=== PATIENT | male | born 1990 | race Caucasian/White ===

== ENCOUNTER 2020-04-29 13:07 | Emergency (ER) | payer OTHER, MEDICAID, SELFPAY ==
[2020-04-29 13:16] VITALS: BP 162/85; PULSE 94; RESP 18; TEMP 37.1; O2SAT 98; BMI 33.0
[2020-04-29 13:47] LABS: Add Manual Diff / Slide Review NO; Basophils Absolute Auto 0 /uL (0-100); Basophils Percent Auto 0.6 % (0-2); Eosinophils Absolute Auto 0 /uL (0-450); Eosinophils Percent Auto 0.3 % (2-4); Hematocrit 41.6 % (41-53); Hemoglobin 13.9 g/dL (13.5-17.5); Lymphocytes Absolute Auto 1200 /uL (1100-4500); Lymphocytes Percent Auto 15.9 % (25-40); Mean Corpuscular HGB Conc 33.5 % (30-36); Mean Corpuscular Hemoglobin 26.8 PG (26-34); Mean Corpuscular Volume 80.1 fL (80-100); Monocytes Absolute Auto 900 /uL (0-900); Monocytes Percent Auto 12.6 % (3-14); Neutrophils Absolute Auto 5200 /uL (1500-7000); Neutrophils Percent Auto 70.6 % (50-75); Platelet Count 265 X10^3/uL (150-400); Red Cell Distribution Width 14.7 % (11.6-14.8); White Blood Cell Count 7.3 X10^3/uL (4.5-11.0)
--- NOTE | 2020-04-29 13:52 | ED_ITS ---
HPI - Alcohol <KATJA Garcia - Last Filed: 04/29/20 17:47> General Chief Complaint: Toxicology Problem Stated Complaint: DETOX Time Seen by Provider: 04/29/20 13:37 Source: patient Mode of arrival: Ambulatory Limitations: no limitations History of Present Illness HPI narrative: The patient is a 30-year-old male who does not smoke alcohol presents with request for medical clearance so that he can go to detox. 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 He was sober for approximately 1 year, relapsed in October and now wants to get help. He denies any thoughts of hurting himself or anybody else. He states that he went to [facility] detox approximately 6 years ago. He states that he started having drug issues when he was 14 years ago. The patient denies any medical history, denies any daily medications, denies any current symptoms of detox right now. Last use both heroin and methamphetamine this morning. He has already called [facility] to do his preliminary interview, which I confirmed with facility. The patient denies any cough, fever, congestion shortness of breath or symptoms of coronavirus. Related Data Allergies Allergy/AdvReac Type Severity Reaction Status Date / Time No Known Drug Allergies Allergy Verified 04/29/20 13:19 Review of Systems <KATJA Garcia - Last Filed: 04/29/20 17:47> Review of Systems Narrative: GENERAL: Denies chills, fatigue, malaise, fever, sweats. HEENT: Denies sinus pain, ear pain, sore throat, difficulty swallowing, dizziness. RESPIRATORY: Denies dyspnea, cough, wheezing, hemoptysis, sputum. CARDIOVASCULAR: Denies chest pain, palpitations, orthopnea, edema, GASTROINTESTINAL: Denies nausea, vomiting, abdominal pain, diarrhea, constipation, melena. : Denies dysuria, frequency, incontinence, hematuria, urinary retention. MUSCULOSKELETAL: denies weakness, joint pain, or bony pain SKIN: Denies rash, skin lesions, or other NEUROLOGIC: Denies weakness, headache, numbness, change in speech, confusion, se izures, incoordination. PSYCHIATRIC: See HPI 12 point review of systems is negative except for those stated above Patient History <KATJA Garcia - Last Filed: 04/29/20 17:47> Social History Smoking Status: Never smoker Smoking Status: Never smoker Substance Use Type: heroin and methamphetamine Exam <KATJA Garcia - Last Filed: 04/29/20 17:47> Narrative Exam Narrative: GENERAL: This is a well-nourished, well-developed patient, in no acute distress HEAD: Atraumatic. Normocephalic. No temporal or scalp tenderness. EYES: Pupils equal round and reactive. Extraocular motions intact. No scleral icterus. No injection or drainage. ENT: Nose without bleeding, purulent drainage or septal hematoma. Airway patent. NECK: Trachea midline. No JVD or lymphadenopathy. Supple, nontender, no meningeal signs. CARDIOVASCULAR: Regular rate and rhythm RESPIRATORY: Clear to auscultation. Breath sounds equal bilaterally. No wheezes, rales, or rhonchi. No cough. No increased respiratory effort. No accessory muscle use. GASTROINTESTINAL: Abdomen soft, non-tender, nondistended. Active bowel sounds all 4 quadrants. No guarding. EXTREMITIES: No clubbing, cyanosis, or edema. No joint tenderness, effusion, or edema noted. BACK: Nontender without deformity or crepitance. No flank tenderness. NEURO: AOx3. SKIN: No rash or erythema on visible skin. IV drug use sites noted bilateral forearms. Initial Vital Signs Initial Vital Signs: Vital Signs Temperature 98.7 F 04/29/20 13:16 Pulse Rate 94 H 04/29/20 13:16 Respiratory Rate 18 04/29/20 13:16 Blood Pressure 162/85 H 04/29/20 13:16 Pulse Oximetry 98 04/29/20 13:16 <Nia Phillip DO - Last Filed: 05/04/20 07:25> Initial Vital Signs Initial Vital Signs: Vital Signs Temperature 98.7 F 04/29/20 13:16 Pulse Rate 94 H 04/29/20 13:16 Respiratory Rate 18 04/29/20 13:16 Blood Pressure 162/85 H 04/29/20 13:16 Pulse Oximetry 98 04/29/20 13:16 Scores <KATJA Garcia - Last Filed: 04/29/20 17:47> GCS Ajay coma scale eye opening: Spontaneous Shirley coma scale verbal response: Orientated Shirley coma scale motor response: Obey commands Shirley coma scale total score: 15 Course <TAE Garcia-BC - Last Filed: 04/29/20 17:47> Orders Ordered: ED Orders 04/29/20 13:41 Complete Blood Count AUTO DIFF Stat Comprehensive Metabolic Panel Stat Ethanol (ETOH) Stat Thyroid Stimulating Hormone Stat 04/29/20 15:00 Urinalysis and Microscopic Stat Urine Drug Screen, Rapid Stat 04/29/20 15:30 [facility] Vital Signs Vital signs: Vital Signs - 8 hr 04/29/20 13:16 04/29/20 17:41 Temperature 98.7 F Pulse Rate 94 H 83 Respiratory Rate 18 16 Blood Pressure 162/85 H 132/86 Pulse Oximetry 98 98 <Nia Phillip DO - Last Filed: 05/04/20 07:25> Orders Ordered: ED Orders 04/29/20 13:41 Complete Blood Count AUTO DIFF Stat Comprehensive Metabolic Panel Stat Ethanol (ETOH) Stat Thyroid Stimulating Hormone Stat 04/29/20 15:00 Urinalysis and Microscopic Stat Urine Drug Screen, Rapid Stat 04/29/20 15:30 Consult to [facility] Stat Vital Signs Vital signs: Vital Signs - 8 hr 04/29/20 13:16 04/29/20 17:41 Temperature 98.7 F Pulse Rate 94 H 83 Respiratory Rate 18 16 Blood Pressure 162/85 H 132/86 Pulse Oximetry 98 98 MDM - Alcohol <TAE Garcia-BC - Last Filed: 04/29/20 17:47> Lab Data Result diagrams: 04/29/20 13:41 04/29/20 13:41 Labs: Lab Results 04/29/20 04/29/20 04/29/20 Range/Units 13:41 13:41 13:41 WBC 7.3 (4.5-11.0) X10^3/uL RBC 5.20 (4.5-5.9) X10^6/uL Hgb 13.9 (13.5-17.5) g/dL Hct 41.6 (41-53) % MCV 80.1 (80-100) fL MCH 26.8 (26-34) PG MCHC 33.5 (30-36) % RDW 14.7 (11.6-14.8) % Plt Count 265 (150-400) X10^3/uL Neut % (Auto) 70.6 (50-75) % Lymph % (Auto) 15.9 L (25-40) % Todd % (Auto) 12.6 (3-14) % Eos % (Auto) 0.3 L (2-4) % Baso % (Auto) 0.6 (0-2) % Neut # (Auto) 5200 (9842-2551) /uL Lymph # (Auto) 1200 (3352-5415) /uL Todd # (Auto) 900 (0-900) /uL Eos # (Auto) 0 (0-450) /uL Baso # (Auto) 0 (0-100) /uL Sodium 140 (137-145) mmol/L Potassium 4.6 (3.4-5.1) mmol/L Chloride 99 (98-107) mmol/L Carbon Dioxide 35 H (22-32) mmol/L BUN 15 (9-20) mg/dL Creatinine 0.82 (0.66-1.25) mg/dL Estimated GFR > 60.0 (>60) mL/min BUN/Creatinine Ratio 18.3 (6-22) Glucose 96 (70-100) mg/dL Calcium 10.6 H (8.4-10.2) mg/dL Total Bilirubin 0.6 (0.2-1.3) mg/dL AST 40 (17-59) IU/L ALT 36 (<50) IU/L Alkaline Phosphatase 85 (38-126) U/L Total Protein 8.2 (6.3-8.2) g/dL Albumin 4.8 (3.5-5.0) g/dL Globulin 3.4 (1.7-4.1) g/dL Albumin/Globulin Ratio 1.4 (1.0-2.8) TSH 2.50 (0.47-4.68) uIU/mL Urine Color Urine Appearance Urine pH (4.5-8.0) Ur Specific [place] (1.000-1.035) Urine Protein (Negative) Urine Glucose (UA) (Negative) g/dL Urine Ketones (NEGATIVE) Urine Occult Blood (Negative) Urine Nitrate (Negative) Urine Bilirubin (NEGATIVE) Urine Urobilinogen (0.2) E.U./dL Ur Leukocyte Esterase (NEGATIVE) Urine RBC (0-5/HPF) Urine WBC (0-5/HPF) Ur Squamous Epith Cells (0-5/HPF) Urine Bacteria (None) Urine Mucus (Negative) Ur Culture Indicated? U Opiates 300ng/mL cut (Negative) Ur Oxycodone Screen (Negative) Urine Methadone Screen (Negative) Ur Barbiturates Screen (Negative) U Tricyclic Antidepress (Negative) Ur Phencyclidine Scrn (Negative) Ur Amphetamines Screen (Negative) U Methamphetamines Scrn (Negative) Ur MDMA Scrn (Ecstasy) (Negative) U Benzodiazepines Scrn (Negative) Urine Cocaine Screen (Negative) U Marijuana (THC) Screen (Negative) Ethyl Alcohol < 10 ( - 10) mg/dL 04/29/20 04/29/20 Range/Units 15:00 15:00 WBC (4.5-11.0) X10^3/uL RBC (4.5-5.9) X10^6/uL Hgb (13.5-17.5) g/dL Hct (41-53) % MCV (80-100) fL MCH (26-34) PG MCHC (30-36) % RDW (11.6-14.8) % Plt Count (150-400) X10^3/uL Neut % (Auto) (50-75) % Lymph % (Auto) (25-40) % Todd % (Auto) (3-14) % Eos % (Auto) (2-4) % Baso % (Auto) (0-2) % Neut # (Auto) (9106-2953) /uL Lymph # (Auto) (0102-6616) /uL Todd # (Auto) (0-900) /uL Eos # (Auto) (0-450) /uL Baso # (Auto) (0-100) /uL Sodium (137-145) mmol/L Potassium (3.4-5.1) mmol/L Chloride (98-107) mmol/L Carbon Dioxide (22-32) mmol/L BUN (9-20) mg/dL Creatinine (0.66-1.25) mg/dL Estimated GFR (>60) mL/min BUN/Creatinine Ratio (6-22) Glucose (70-100) mg/dL Calcium (8.4-10.2) mg/dL Total Bilirubin (0.2-1.3) mg/dL AST (17-59) IU/L ALT (<50) IU/L Alkaline Phosphatase (38-126) U/L Total Protein (6.3-8.2) g/dL Albumin (3.5-5.0) g/dL Globulin (1.7-4.1) g/dL Albumin/Globulin Ratio (1.0-2.8) TSH (0.47-4.68) uIU/mL Urine Color Yellow Urine Appearance Clear Urine pH 5.5 (4.5-8.0) Ur Specific [place] 1.025 (1.000-1.035) Urine Protein Trace H (Negative) Urine Glucose (UA) Negative (Negative) g/dL Urine Ketones 3+ H (NEGATIVE) Urine Occult Blood Negative (Negative) Urine Nitrate Negative (Negative) Urine Bilirubin Negative (NEGATIVE) Urine Urobilinogen 0.2 (0.2) E.U./dL Ur Leukocyte Esterase Negative (NEGATIVE) Urine RBC 1-5/hpf (0-5/HPF) Urine WBC 1-5/hpf (0-5/HPF) Ur Squamous Epith Cells 0-1 /hpf (0-5/HPF) Urine Bacteria Occasional (0-1) (None) Urine Mucus 3+ H (Negative) Ur Culture Indicated? Cult not indicated U Opiates 300ng/mL cut Positive H (Negative) Ur Oxycodone Screen Negative (Negative) Urine Methadone Screen Negative (Negative) Ur Barbiturates Screen Negative (Negative) U Tricyclic Antidepress Negative (Negative) Ur Phencyclidine Scrn Negative (Negative) Ur Amphetamines Screen Negative (Negative) U Methamphetamines Scrn Positive H (Negative) Ur MDMA Scrn (Ecstasy) Negative (Negative) U Benzodiazepines Scrn Negative (Negative) Urine Cocaine Screen Negative (Negative) U Marijuana (THC) Screen Negative (Negative) Ethyl Alcohol ( - 10) mg/dL MDM Narrative Medical decision making narrative: The patient is a 30-year-old male who presents requesting medical clearance to go to [facility] for detox from methamphetamine and heroin. His last use was this morning. He denies any thoughts of hurting himself or anybody else. We discussed symptoms of coronavirus including fever, cough, chest pain, shortness of breath and he denies any symptoms of coronavirus. Thus we will hold off on testing him at this point time as per [facility] detox. Patient's labs and results were faxed to [facility] at approximately 4:00 p.m. At 17:00, [facility] is reviewing the patient's lab work, and will call back shortly. Patient was then accepted to [facility] for methamphetamine and heroin use. Patient will be driven by mother and family. Discussed with patient at 5:40 p.m. that he is to proceed directly to detox. Patient has declined any food, is been drinking throughout his stay in the emergency department. I discussed at length coming back to the emergency department for any acute concerns. patient has no questions or concerns upon discharge and states understanding of return precautions as well as follow-up care. The patient contact [facility] electronic resources librarian, who can help him obtain primary care provider. Patient discharged by nursing <Nia Phillip DO - Last Filed: 05/04/20 07:25> Lab Data Labs: Lab Results 04/29/20 04/29/20 04/29/20 Range/Units 13:41 13:41 13:41 WBC 7.3 (4.5-11.0) X10^3/uL RBC 5.20 (4.5-5.9) X10^6/uL Hgb 13.9 (13.5-17.5) g/dL Hct 41.6 (41-53) % MCV 80.1 (80-100) fL MCH 26.8 (26-34) PG MCHC 33.5 (30-36) % RDW 14.7 (11.6-14.8) % Plt Count 265 (150-400) X10^3/uL Neut % (Auto) 70.6 (50-75) % Lymph % (Auto) 15.9 L (25-40) % Todd % (Auto) 12.6 (3-14) % Eos % (Auto) 0.3 L (2-4) % Baso % (Auto) 0.6 (0-2) % Neut # (Auto) 5200 (0656-8940) /uL Lymph # (Auto) 1200 (2097-1090) /uL Todd # (Auto) 900 (0-900) /uL Eos # (Auto) 0 (0-450) /uL Baso # (Auto) 0 (0-100) /uL Sodium 140 (137-145) mmol/L Potassium 4.6 (3.4-5.1) mmol/L Chloride 99 (98-107) mmol/L Carbon Dioxide 35 H (22-32) mmol/L BUN 15 (9-20) mg/dL Creatinine 0.82 (0.66-1.25) mg/dL Estimated GFR > 60.0 (>60) mL/min BUN/Creatinine Ratio 18.3 (6-22) Glucose 96 (70-100) mg/dL Calcium 10.6 H (8.4-10.2) mg/dL Total Bilirubin 0.6 (0.2-1.3) mg/dL AST 40 (17-59) IU/L ALT 36 (<50) IU/L Alkaline Phosphatase 85 (38-126) U/L Total Protein 8.2 (6.3-8.2) g/dL Albumin 4.8 (3.5-5.0) g/dL Globulin 3.4 (1.7-4.1) g/dL Albumin/Globulin Ratio 1.4 (1.0-2.8) TSH 2.50 (0.47-4.68) uIU/mL Urine Color Urine Appearance Urine pH (4.5-8.0) Ur Specific [place] (1.000-1.035) Urine Protein (Negative) Urine Glucose (UA) (Negative) g/dL Urine Ketones (NEGATIVE) Urine Occult Blood (Negative) Urine Nitrate (Negative) Urine Bilirubin (NEGATIVE) Urine Urobilinogen (0.2) E.U./dL Ur Leukocyte Esterase (NEGATIVE) Urine RBC (0-5/HPF) Urine WBC (0-5/HPF) Ur Squamous Epith Cells (0-5/HPF) Urine Bacteria (None) Urine Mucus (Negative) Ur Culture Indicated? U Opiates 300ng/mL cut (Negative) Ur Oxycodone Screen (Negative) Urine Methadone Screen (Negative) Ur Barbiturates Screen (Negative) U Tricyclic Antidepress (Negative) Ur Phencyclidine Scrn (Negative) Ur Amphetamines Screen (Negative) U Methamphetamines Scrn (Negative) Ur MDMA Scrn (Ecstasy) (Negative) U Benzodiazepines Scrn (Negative) Urine Cocaine Screen (Negative) U Marijuana (THC) Screen (Negative) Ethyl Alcohol < 10 ( - 10) mg/dL 04/29/20 04/29/20 Range/Units 15:00 15:00 WBC (4.5-11.0) X10^3/uL RBC (4.5-5.9) X10^6/uL Hgb (13.5-17.5) g/dL Hct (41-53) % MCV (80-100) fL MCH (26-34) PG MCHC (30-36) % RDW (11.6-14.8) % Plt Count (150-400) X10^3/uL Neut % (Auto) (50-75) % Lymph % (Auto) (25-40) % Todd % (Auto) (3-14) % Eos % (Auto) (2-4) % Baso % (Auto) (0-2) % Neut # (Auto) (8156-6721) /uL Lymph # (Auto) (4430-6984) /uL Todd # (Auto) (0-900) /uL Eos # (Auto) (0-450) /uL Baso # (Auto) (0-100) /uL Sodium (137-145) mmol/L Potassium (3.4-5.1) mmol/L Chloride (98-107) mmol/L Carbon Dioxide (22-32) mmol/L BUN (9-20) mg/dL Creatinine (0.66-1.25) mg/dL Estimated GFR (>60) mL/min BUN/Creatinine Ratio (6-22) Glucose (70-100) mg/dL Calcium (8.4-10.2) mg/dL Total Bilirubin (0.2-1.3) mg/dL AST (17-59) IU/L ALT (<50) IU/L Alkaline Phosphatase (38-126) U/L Total Protein (6.3-8.2) g/dL Albumin (3.5-5.0) g/dL Globulin (1.7-4.1) g/dL Albumin/Globulin Ratio (1.0-2.8) TSH (0.47-4.68) uIU/mL Urine Color Yellow Urine Appearance Clear Urine pH 5.5 (4.5-8.0) Ur Specific [place] 1.025 (1.000-1.035) Urine Protein Trace H (Negative) Urine Glucose (UA) Negative (Negative) g/dL Urine Ketones 3+ H (NEGATIVE) Urine Occult Blood Negative (Negative) Urine Nitrate Negative (Negative) Urine Bilirubin Negative (NEGATIVE) Urine Urobilinogen 0.2 (0.2) E.U./dL Ur Leukocyte Esterase Negative (NEGATIVE) Urine RBC 1-5/hpf (0-5/HPF) Urine WBC 1-5/hpf (0-5/HPF) Ur Squamous Epith Cells 0-1 /hpf (0-5/HPF) Urine Bacteria Occasional (0-1) (None) Urine Mucus 3+ H (Negative) Ur Culture Indicated? Cult not indicated U Opiates 300ng/mL cut Positive H (Negative) Ur Oxycodone Screen Negative (Negative) Urine Methadone Screen Negative (Negative) Ur Barbiturates Screen Negative (Negative) U Tricyclic Antidepress Negative (Negative) Ur Phencyclidine Scrn Negative (Negative) Ur Amphetamines Screen Negative (Negative) U Methamphetamines Scrn Positive H (Negative) Ur MDMA Scrn (Ecstasy) Negative (Negative) U Benzodiazepines Scrn Negative (Negative) Urine Cocaine Screen Negative (Negative) U Marijuana (THC) Screen Negative (Negative) Ethyl Alcohol ( - 10) mg/dL Discharge Plan Departure Patient Disposition: Home Clinical Impression: Substance use disorder Discharge Date/Time: 04/29/20 17:46 Instructions: DI for Substance Use Disorder Activity Restrictions/Additional Instructions: Thank you for trusting us with your care today As discussed, you have been accepted by [facility]. We have provided a cab in order to get you over there. Please proceed directly to [facility] detox. Please come back to emergency department for any acute concerns. I have given you contact information [facility] electronic resources librarian, who can help you identify a primary care provider when you are ready for one Referrals: [facility] [Outside] <Nia Phillip, - Last Filed: 05/04/20 07:25> [facility] Yee Attestation: I was immediately available in the department for consultation. Documentation has been reviewed. I agree with assessment and plan.
[2020-04-29 14:01] LABS: Alanine Aminotransferase 36 IU/L (<50); Albumin 4.8 g/dL (3.5-5.0); Albumin Globulin Ratio 1.4 (1.0-2.8); Alkaline Phosphatase 85 U/L (38-126); Aspartate Aminotransferase 40 IU/L (17-59); BUN Creatinine Ratio 18.3 (6-22); Bilirubin Total 0.6 mg/dL (0.2-1.3); Blood Urea Nitrogen 15 mg/dL (9-20); Calcium 10.6 mg/dL (8.4-10.2); Carbon Dioxide 35 mmol/L (22-32); Chloride 99 mmol/L (98-107); Estimated Glomerular Filt Rate > 60.0 mL/min (>60); Ethanol (ETOH) < 10 mg/dL; Globulin 3.4 g/dL (1.7-4.1); Glucose 96 mg/dL (70-100); HEMOLYSIS < 15 (0-50); Potassium 4.6 mmol/L (3.4-5.1); Sodium 140 mmol/L (137-145); Total Protein 8.2 g/dL (6.3-8.2)
[2020-04-29 15:35] LABS: Appearance Urine UA CLEAR; Bilirubin Urine UA NEGATIVE (NEGATIVE); Color Urine UA YELLOW; Glucose Urine UA NEGATIVE (Negative); Ketones Urine UA 3+ (NEGATIVE); Leukocyte Esterase Urine UA NEGATIVE (NEGATIVE); Nitrite Urine UA NEGATIVE (Negative); Occult Blood Urine UA NEGATIVE (Negative); Protein Urine UA TRACE (Negative); Specific Gravity Urine UA 1.025 (1.000-1.035); Urobilinogen Urine UA 0.2 E.U./dL (0.2); pH Urine UA 5.5 (4.5-8.0)
[2020-04-29 15:45] LABS: Bacteria Urine Occasional (0-1); Culture Indicated Urine Cult Not Indicated; Mucus Urine 3+ (Negative); RBC Urine 1-5/HPF (0-5/HPF); Squamous Epithelial Cell Urine 0-1 /HPF (0-5/HPF); WBC Urine 1-5/HPF (0-5/HPF)
[2020-04-29 15:46] LABS: Ur Creatinine Normal (Normal); Ur Specific Gravity Normal (Normal); Urine pH Normal (Normal)
[2020-04-29 15:47] LABS: UR Morphine/Opiate cutoff 300 Positive (Negative); Urine Amphetamines Negative (Negative); Urine Barbiturates Negative (Negative); Urine Benzodiazepines Negative (Negative); Urine Cocaine Negative (Negative); Urine MDMA Negative (Negative); Urine Methadone Negative (Negative); Urine Methamphetamines Positive (Negative); Urine Oxycodone Negative (Negative); Urine Phencyclidine Negative (Negative); Urine Tetrahydrocannabinol Negative (Negative); Urine Tricyclic Antidepressant Negative (Negative)
[2020-04-29 17:41] VITALS: BP 132/86; PULSE 83; RESP 16; O2SAT 98
== END 2020-04-29 17:46 | disposition home or self-care (01) ==
PROVIDERS: Emergency Medicine; Emergency Provider Nurse Practitioner Family
DX: F19.90 Other psychoactive substance use, unspecified, uncomplicated (principal)
CPT/HCPCS: 36415; 80053; 80305; 80320; 81001; 84443; 85025; 99283

== ENCOUNTER → 2022-03-19 18:42 | Outpatient (CLI) | payer OTHER, MEDICAID, SELFPAY ==
--- NOTE | 2022-03-19 18:44 | DI.RAD.S_ITS ---
PROCEDURE: XR WRIST RT MIN 3V INDICATIONS: lump on right forearm, ROM difficulties TECHNIQUE: 4 views of the wrist were acquired. COMPARISON: None. FINDINGS: Bones: No fractures or dislocations. No suspicious bony lesions. Scaphoid view: Negative Soft tissues: No suspicious soft tissue calcifications. IMPRESSION: No acute fracture. No osseous lesion. If symptoms and/or clinical suspicion for pathology persist, further assessment with repeat, or advanced imaging (e.g., CT, MRI, or bone scan) may be helpful for further assessment. Dictated by: Anali Guerrier M.D. on 03/19/2022 at 18:53 Approved by: Anali Guerrier M.D. on 03/19/2022 at 18:54
== END ==
PROVIDERS: Referring Provider Physician Assistant; Visit Provider Physician Assistant
DX: M79.89 Other specified soft tissue disorders; M79.631 Pain in right forearm
CPT/HCPCS: 73110

== ENCOUNTER → 2023-06-09 15:24 | Outpatient (CLI) | payer OTHER, MEDICAID, SELFPAY | PROVIDERS: Visit Provider Registered Nurse | DX: R10.9 Unspecified abdominal pain (principal) | CPT/HCPCS: 81002; 87086 ==

== ENCOUNTER 2024-10-05 17:34 | Emergency (ER) | payer SELFPAY ==
[2024-10-05] VITALS (12 sets, daily range): BP systolic 134–196; BP diastolic 81–131; PULSE 73–115; RESP 17–24; TEMP 36.6; O2SAT 92–98; BMI 35.9
--- NOTE | 2024-10-05 18:13 | EKG_ITS ---
[address] [address] Test Date: 2024-10-05 Pat Name: Alvarado Guevara Department: Room: Gender: Male Psych Social Worker: MAGDALENO : 1990 Requested By: Order Number: [id number] Reading MD: Akira Samson MD Measurements Intervals [place] Rate: 90 P: 50 [place]: 152 QRS: 8 QRSD: 80 T: 29 QT: 340 QTc: 415 Interpretive Statements Normal sinus rhythm with sinus arrhythmia Electronically Signed On 10-06-2024 7:48:00 PST by Akira Samson MD
[2024-10-05 18:20] LABS: Add Manual Diff / Slide Review NO; Basophils Absolute Auto 0 /uL (0-100); Basophils Percent Auto 0.5 % (0-2); Eosinophils Absolute Auto 0 /uL (0-450); Eosinophils Percent Auto 0.1 % (2-4); Hematocrit 47.6 % (41-53); Hemoglobin 15.6 g/dL (13.5-17.5); Lymphocytes Absolute Auto 800 /uL (1100-4500); Lymphocytes Percent Auto 14.1 % (25-40); Mean Corpuscular HGB Conc 32.8 % (30-36); Mean Corpuscular Volume 94.6 fL (80-100); Monocytes Absolute Auto 600 /uL (0-900); Monocytes Percent Auto 9.5 % (3-14); Neutrophils Absolute Auto 4500 /uL (1500-7000); Neutrophils Percent Auto 75.8 % (50-75); Platelet Count 239 X10^3/uL (150-400); Red Blood Cell Count 5.03 X10^6/uL (4.5-5.9); Red Cell Distribution Width 15.6 % (11.6-14.8)
[2024-10-05 18:32] LABS: Acetaminophen < 10 ug/mL (10-30); Alanine Aminotransferase 256 IU/L (<50); Albumin Globulin Ratio 1.5 (1.0-2.8); Alkaline Phosphatase 80 U/L (38-126); Aspartate Aminotransferase 231 IU/L (17-59); BUN Creatinine Ratio 13.5 (6-22); Bilirubin Total 0.5 mg/dL (0.2-1.3); Blood Urea Nitrogen 10 mg/dL (9-20); Calcium 9.2 mg/dL (8.4-10.2); Carbon Dioxide 27 mmol/L (22-32); Chloride 102 mmol/L (98-107); Estimated Glomerular Filt Rate > 60 mL/min (>60); Ethanol (ETOH) 83 mg/dL; Globulin 3.3 g/dL (1.7-4.1); Glucose 105 mg/dL (70-100); HEMOLYSIS < 15 (0-50); Potassium 4.3 mmol/L (3.4-5.1); Salicylate < 1.0 mg/dL (<20); Sodium 138 mmol/L (137-145); Total Protein 8.3 g/dL (6.3-8.2)
[2024-10-05 19:22] LABS: Free T4, Direct Thyroxine 0.72 ng/dL (0.78-2.19)
[2024-10-05 19:35] LABS: Thyroid Stimulating Hormone 3.11 uIU/mL (0.47-4.68)
[2024-10-05 22:37] LABS: UR Morphine/Opiate cutoff 300 Negative (Negative); Ur Creatinine Normal (Normal); Ur Specific Gravity Normal (Normal); Urine Amphetamines Negative (Negative); Urine Barbiturates Negative (Negative); Urine Benzodiazepines Negative (Negative); Urine Cocaine Negative (Negative); Urine MDMA Negative (Negative); Urine Methadone Negative (Negative); Urine Methamphetamines Negative (Negative); Urine Oxycodone Negative (Negative); Urine Phencyclidine Negative (Negative); Urine Tetrahydrocannabinol Negative (Negative); Urine Tricyclic Antidepressant Negative (Negative); Urine pH Normal (Normal)
--- NOTE | 2024-10-05 23:02 | ED.GENADULT ---
HPI - General Adult General Chief complaint: Toxicology Problem Stated complaint[facility] Time Seen by Provider: 10/05/24 22:58 Source: patient Mode of arrival: Ambulatory History of Present Illness HPI narrative: 34-year-old male with history of remote heroin abuse quit 5 years ago, for the last 1-1/2 years has been drinking alcohol rather heavily, usually 1-1/2 L of wine daily, last drink of alcohol was noon today, feeling shaky through the day today. He would like detox services. He has not had any nausea or vomiting. He does not feel feverish. No chest pain or shortness of breath. No shaking or seizure activity. No incontinence of urine or stool. Related Data Home Medications Medication Instructions Recorded Confirmed No Known Home Medications 03/19/22 03/19/22 Allergies Allergy/AdvReac Type Severity Reaction Status Date / Time No Known Drug Allergies Allergy Verified 03/19/22 18:25 Patient History Social History Smoking Status: Never smoker Smoking Status: Never smoker Alcohol type: wine Exam Narrative Exam Narrative: GENERAL: Well-developed patient, in mild distress. HEAD: Atraumatic. Normocephalic. EYES: Pupils equal round and reactive. Extraocular motions intact. No scleral icterus. No injection or drainage. ENT: Nose without bleeding, purulent drainage. Throat without erythema, tonsillar hypertrophy or exudate. Airway patent. NECK: Trachea midline. Non tender CARDIOVASCULAR: Regular rate and rhythm without murmurs, gallops, or rubs. RESPIRATORY: Clear to auscultation. Breath sounds equal bilaterally. No wheezes, rales, or rhonchi. GASTROINTESTINAL: Abdomen soft, non-tender, nondistended. EXTREMITIES: No edema or joint tenderness. BACK: Nontender without deformity or crepitance. No flank tenderness. NEURO: AOx3. Motor functions grossly nonfocal. Some tremulousness noted. SKIN: No rash or erythema of visible areas Initial Vital Signs Initial Vital Signs: Vital Signs Temperature 98 F 10/05/24 17:55 Pulse Rate 115 H 10/05/24 17:55 Respiratory Rate 18 10/05/24 17:55 Blood Pressure 196/108 H 10/05/24 17:55 Pulse Oximetry 94 10/05/24 17:55 Oxygen Delivery Method Room Air 10/05/24 17:55 Course Orders Ordered: ED Orders 10/05/24 22:23 UA dip [Urinalysis Screen (Dip Only)] Stat Urine Drug Screen, Rapid Stat Lorazepam (Lorazepam 2 Mg/Ml Inj) 2 mg IV PRN PRN; Protocol PRN Reason: Alcohol Withdrawal Last Admin: 10/06/24 02:15 Dose: 2 mg Documented By: KENDELL Discontinued Medications Thiamine HCl 100 mg/ Sodium (Chloride) 101 mls @ 404 mls/hr IV NOW ONE Stop: 10/05/24 23:04 Last Infusion: 10/05/24 23:50 Dose: Infused Documented By: Admin: 10/05/24 23:19 Dose: 404 mls/hr Documented By: GUCCI Sodium Chloride (Normal Saline 0.9%) 1,000 mls @ 1,000 mls/hr IV BOLUS ONE Stop: 10/06/24 00:02 Last Infusion: 10/06/24 00:46 Dose: Infused Documented By: Admin: 10/05/24 23:18 Dose: 1,000 mls/hr Documented By: GUCCI Lorazepam (Lorazepam 2 Mg/Ml Inj) 2 mg IV NOW ONE; Protocol Stop: 10/05/24 23:59 Last Admin: 10/06/24 00:13 Dose: Not Given Documented By: KENDELL Phenobarbital (Phenobarbital 65 Mg/Ml Vial) 65 mg IV NOW ONE Stop: 10/05/24 23:01 Last Admin: 10/05/24 23:04 Dose: 65 mg Documented By: GUCCI Vital Signs Vital signs: Vital Signs - 8 hr 10/05/24 23:30 10/05/24 23:30 10/06/24 00:00 Pulse Rate 107 H Respiratory Rate Blood Pressure 174/104 H 165/95 H Pulse Oximetry 96 Oxygen Delivery Method 10/06/24 00:00 10/06/24 00:30 10/06/24 00:30 Pulse Rate 78 90 Respiratory Rate 24 14 Blood Pressure 165/95 H Pulse Oximetry 94 94 Oxygen Delivery Method Room Air 10/06/24 01:00 10/06/24 01:00 10/06/24 01:30 Pulse Rate 91 H Respiratory Rate 22 Blood Pressure 155/105 H 174/108 H Pulse Oximetry 95 Oxygen Delivery Method Room Air 10/06/24 01:30 10/06/24 02:00 10/06/24 02:00 Pulse Rate 100 H 96 H Respiratory Rate 26 H 28 H Blood Pressure 182/102 H Pulse Oximetry 96 96 Oxygen Delivery Method 10/06/24 02:17 10/06/24 02:17 10/06/24 02:30 Pulse Rate 102 H 90 Respiratory Rate 20 21 Blood Pressure 181/115 H 149/97 H Pulse Oximetry 97 97 Oxygen Delivery Method 10/06/24 02:30 10/06/24 03:00 10/06/24 03:00 Pulse Rate 67 68 Respiratory Rate 18 14 Blood Pressure 143/102 H Pulse Oximetry 94 95 Oxygen Delivery Method 10/06/24 03:30 10/06/24 03:30 10/06/24 04:00 Pulse Rate 76 Respiratory Rate 15 Blood Pressure 153/102 H 147/95 H Pulse Oximetry 95 Oxygen Delivery Method 10/06/24 04:00 10/06/24 04:30 10/06/24 04:30 Pulse Rate 73 92 H Respiratory Rate 15 13 Blood Pressure 136/93 H Pulse Oximetry 93 93 Oxygen Delivery Method 10/06/24 05:00 10/06/24 05:00 10/06/24 05:30 Pulse Rate 84 Respiratory Rate 16 Blood Pressure 148/94 H 137/84 Pulse Oximetry 95 Oxygen Delivery Method 10/06/24 05:30 10/06/24 06:00 10/06/24 06:00 Pulse Rate 68 63 Respiratory Rate 13 13 Blood Pressure 155/94 H Pulse Oximetry 94 95 Oxygen Delivery Method 10/06/24 06:30 10/06/24 06:30 Pulse Rate 67 Respiratory Rate 13 Blood Pressure 167/92 H Pulse Oximetry 94 Oxygen Delivery Method Medical Decision Making Lab Data Lab results reviewed: Yes I reviewed the patient's lab results. Lab results narrative: White blood cell count 6000, hemoglobin 15.6, platelets adequate. Basic metabolic panel unremarkable, glucose 105 noted. AST 251, ALT 256, normal alkaline phosphatase and T bili. Alcohol level 83. Acetaminophen negative. Salicylate negative. Urine tox screen negative. 10/05/24 18:10 10/05/24 18:10 Labs: Lab Results 10/05/24 10/05/24 10/05/24 Range/Units 18:10 22:23 22:23 WBC 6.0 (4.5-11.0) X10^3/uL RBC 5.03 (4.5-5.9) X10^6/uL Hgb 15.6 (13.5-17.5) g/dL Hct 47.6 (41-53) % MCV 94.6 (80-100) fL MCH 31.0 (26-34) PG MCHC 32.8 (30-36) % RDW 15.6 H (11.6-14.8) % Plt Count 239 (150-400) X10^3/uL Neut % (Auto) 75.8 H (50-75) % Lymph % (Auto) 14.1 L (25-40) % Snyder % (Auto) 9.5 (3-14) % Eos % (Auto) 0.1 L (2-4) % Baso % (Auto) 0.5 (0-2) % Neut # (Auto) 4500 (5618-0012) /uL Lymph # (Auto) 800 L (8453-5598) /uL Snyder # (Auto) 600 (0-900) /uL Eos # (Auto) 0 (0-450) /uL Baso # (Auto) 0 (0-100) /uL Sodium 138 (137-145) mmol/L Potassium 4.3 (3.4-5.1) mmol/L Chloride 102 (98-107) mmol/L Carbon Dioxide 27 (22-32) mmol/L BUN 10 (9-20) mg/dL Creatinine 0.74 (0.66-1.25) mg/dL Estimated GFR > 60 (>60) mL/min BUN/Creatinine Ratio 13.5 (6-22) Glucose 105 H (70-100) mg/dL Calcium 9.2 (8.4-10.2) mg/dL Total Bilirubin 0.5 (0.2-1.3) mg/dL AST 231 H (17-59) IU/L ALT 256 H (<50) IU/L Alkaline Phosphatase 80 (38-126) U/L Total Protein 8.3 H (6.3-8.2) g/dL Albumin 5.0 (3.5-5.0) g/dL Globulin 3.3 (1.7-4.1) g/dL Albumin/Globulin Ratio 1.5 (1.0-2.8) TSH 3.11 (0.47-4.68) uIU/mL Free T4 0.72 L (0.78-2.19) ng/dL Urine Color Yellow Urine Appearance Clear Urine pH 7.0 Normal (4.5-8.0) Ur Specific Plush 1.020 (1.000-1.035) Urine Protein Negative (Negative) Urine Glucose (UA) Negative (Negative) g/dL Urine Ketones Trace H (NEGATIVE) Urine Occult Blood Negative (Negative) Urine Nitrate Negative (Negative) Urine Bilirubin Negative (NEGATIVE) Urine Urobilinogen 0.2 (0.2) E.U./dL Ur Leukocyte Esterase Negative (NEGATIVE) Salicylates < 1.0 (<20) mg/dL U Opiates 300ng/mL cut Negative (Negative) Ur Oxycodone Screen Negative (Negative) Urine Methadone Screen Negative (Negative) Acetaminophen < 10 (10-30) ug/mL Ur Barbiturates Screen Negative (Negative) U Tricyclic Antidepress Negative (Negative) Ur Phencyclidine Scrn Negative (Negative) Ur Amphetamines Screen Negative (Negative) U Methamphetamines Scrn Negative (Negative) Ur MDMA Scrn (Ecstasy) Negative (Negative) U Benzodiazepines Scrn Negative (Negative) Urine Cocaine Screen Negative (Negative) U Marijuana (THC) Screen Negative (Negative) Urine Specific Plush Normal (Normal) Ethyl Alcohol 83 H ( - 10) mg/dL Ur Creatinine Normal (Normal) MDM Narrative Medical decision making narrative: 34-year-old male with history of alcohol abuse, last drink earlier today, feeling some shakiness, no seizure activity, requesting detox services. He denies thoughts of wanting to hurt himself or others. Screening labs sent. Initial CIWA score = 4. He was given phenobarbital 65 mg dose. As needed CIWA Ativan protocol orders subsequently in place per nursing preference. We will further observe here in the emergency department. Screening labs pending. creative services director consult when available tomorrow morning. IV fluid bolus, IV thiamine. Blood alcohol level at 1830 intial draw level of 83 noted, other screening labs unremarkable, mild transaminitis liver enzymes noted. Lipase normal. 0600, Patient sleeping. He received phenobarbital last night 2330 with good effect, at 0230 received Ativan 2 mg single dose, no further benzodiazepine/phenobarbital dosing thus far. 0700, signed out to [facility] ED shift physician Dr. Martinez Discharge Plan Departure Prescriptions: No Action No Known Home Medications Referrals: Miscellaneous,Doctor[facility] [Primary Care Provider] -
[2024-10-05] MEDS: PHENobarbital 65 MG/ML VIAL IV (23:04)
--- NOTE | 2024-10-05 23:11 | PC.NURSE ---
This RN checks on patient. Pt is drenched in sweat. CWA 14. Medicated per NOV.
[2024-10-05] MEDS: SODIUM CHLORIDE 0.9% 1,000 ML 1000 ML IV (23:18)
[2024-10-05] MEDS: THIAMINE 100 MG in SODIUM CHLORIDE 0.9% 100 ML 404 MG IV (23:19)
[2024-10-06] VITALS (30 sets, daily range): BP systolic 136–184; BP diastolic 84–115; PULSE 62–108; RESP 12–28; O2SAT 93–97
[2024-10-06 00:56] LABS: Appearance Urine UA CLEAR; Bilirubin Urine UA NEGATIVE (NEGATIVE); Color Urine UA YELLOW; Glucose Urine UA NEGATIVE (Negative); Ketones Urine UA TRACE (NEGATIVE); Leukocyte Esterase Urine UA NEGATIVE (NEGATIVE); Nitrite Urine UA NEGATIVE (Negative); Occult Blood Urine UA NEGATIVE (Negative); Protein Urine UA NEGATIVE (Negative); Urobilinogen Urine UA 0.2 E.U./dL (0.2)
[2024-10-06] MEDS: LORazepam 2 MG/ML INJ IV ×2 (02:15→09:39)
--- NOTE | 2024-10-06 07:30 | PC.NURSE ---
This RNs first interaction with patient. Pt resting with eyes closed at this time. Last assessment performed at 0200 by production supervisor off shift RN.
--- NOTE | 2024-10-06 08:31 | PC.NURSE ---
Pt sleeping, no CIWA performed per ED physician.
[2024-10-06 10:33] LABS: COVID19 -Nasal RAPID Negative (Negative)
--- NOTE | 2024-10-06 13:16 | CM.SWNOTE ---
ED CADD DRAFTER Assessment Patient is 34 y/o male who presents to ED last night due to concern for ETOH withdrawals and seeking detox. Patient came from [facility]. Patient does not have current PCP, patient just signed up for [employer] insurance and it will be effective in October 2024. It is reported that patient has been drinking 1.5 liters of wine daily, patient's last drink was noon yesterday. Patient's BAL is 83. CADD DRAFTER enters room to meet with patient, patient presents as A/Ox4, presenting as fatigued, current CIWA is 2. Patient endorses hx of significant heroin use 5 years ago. Patient endorses hx of going to [place] detox in the past. Patient's mother and girlfriend are present and provide good support to patient. CADD DRAFTER calls [facility] and it is reported that they have beds. CADD DRAFTER provides phone for patient to contact [facility] and patient conducts phone screening. CADD DRAFTER faxes clinicals for review as patient is medically cleared. Ita calls back and reports concerns for patient's high blood pressure, RN speaks with Ituha RN and Ita RN reviews further with their medical provider. It is reported that patient is accepted at [facility] and can be there at 1430. Patient's mother and gf state they plan to drive patient straight there. CADD DRAFTER provides patient with lists of [facility] outpatient resources and encourages patient to f/u with PCP and establish care. Plan: patient to d/c upon medical clearance straight to [facility] for detox, patient to f/u with resources provided and to seek outpatient care. Ngoc Rogers, SCIENTIFIC INFORMATICS ANALYST
== END 2024-10-06 13:23 | disposition home or self-care (01) ==
PROVIDERS: Emergency Medicine; Emergency Provider Emergency Medicine
DX: F10.10 Alcohol abuse, uncomplicated (principal); Y90.4 Blood alcohol level of 80-99 mg/100 ml; Z11.52 Encounter for screening for COVID-19
CPT/HCPCS: 80053; 80305; 80320; 80329; 81003; 84439; 84443; 85025; 87635; 93005; 93010; 96361; 96365; 96375; 99284; G0480; J2060; J2560